=== PATIENT | male | born 1970 | race Caucasian/White ===

== ENCOUNTER 2021-04-26 14:06 | Outpatient (CLI) | payer MEDICARE, SELFPAY ==
--- NOTE | 2021-04-26 | ECHO_ITS ---
Patient Info Name: Tray Monte Age: 51 years : 1970 Gender: Male Ht: 71 in Wt: 384 lbs BSA: 3.05 m2 HR: 96 bpm BP: 113 / 74 mmHg Heart Rhythm: Atrial Fibrillation Technical Quality: Good Exam Date: 04/26/2021 2:36 PM Exam Location: [facility] Patient Status: Outpatient Admit Date: 04/26/2021 Staff Ordering Physician: Maryjo, Michael Pierce MD [employer] Header Operator: MICHAEL Attending Provider: Maryjo, Michael Pierce MD Referring Physician: Maryjo HALL; Exam Type: CA echo doppler color flow Study Info Indications I35.0 - Nonrheumatic aortic (valve) stenosis Z95.2 - Presence of prosthetic heart valve Complete two-dimensional, color flow and Doppler transthoracic echocardiogram is performed with contrast to opacify the left ventricle and to improve the deliniation of the left ventricle endocardial borders. Contrast/Agitated Saline Contrast/Ag. Saline: Definity Amount: 2.00 ml Administered By: Yuli Savage RN Summary 1. Obesity results in difficult image quality. 2. Definity contrast used to enhance LV visualization. 3. Left ventricular systolic function is normal, estimated at 55-60%. 4. Normal appearing and functionin gaortic bioprosthesis. 5. Atrial Fibrillation. 6. Left atrial chamber dimension is moderately enlarged. Left Ventricle Left ventricular chamber dimension is normal. Left ventricular systolic function is normal, estimated at 55-60%. The left ventricular diastolic function is indeterminate. Right Ventricle Right ventricular chamber dimension is normal. Left Atria Left atrial chamber dimension is moderately enlarged. Right Atria Right atrial chamber dimension is normal. Aortic Valve There is no regurgitation of the bioprosthetic aortic valve. Pulmonic Valve The pulmonic valve is not well visualized. Mitral Valve The mitral valve has normal leaflets. There is no mitral valve regurgitation. Tricuspid Valve The tricuspid valve leaflets are not well visualized. Pericardium/Pleural The pericardium appears normal. Aorta The aortic root size at the sinus of Valsalva is normal. Left Ventricular Outflow Tract Name Value Normal LVOT 2D LVOT Diameter 2.1 cm LVOT Doppler LVOT Peak Gradient 2 mmHg LVOT Mean Gradient 2 mmHg LVOT VTI 18 cm LVOT VTI/AV VTI Ratio 0.4 LVOT Stroke Volume 63 ml LVOT CO 14.3 l/min LVOT CI 4.7 l/min/m2 Pulmonic Valve Name Value Normal PV Doppler PV Peak Gradient 6 mmHg PV Regurgitation Doppler NC Peak End Diastolic Velo
== END 2021-04-26 14:07 | disposition home or self-care (01) ==
PROVIDERS: PCP Family Medicine Sports Medicine; Visit Provider Hospitalist
DX: Z95.2 Presence of prosthetic heart valve (principal); I48.0 Paroxysmal atrial fibrillation
CPT/HCPCS: 93306; C8929